=== PATIENT | male | born 1990 | race African-American/Black ===

== ENCOUNTER 2021-04-26 17:36 | Emergency (ER) | payer SELFPAY ==
[~2021-04-26] VITALS: Ht 165.1 cm; Wt 82.0 kg
[2021-04-26 20:03] VITALS: BP 152/66
[2021-04-26] MEDS ORDERED: IBUPROFEN 400MG TABLET PO ONE (21:15)
[2021-04-26] MEDS ORDERED: ACETAMINOPHEN 325MG TABLET PO ONE (21:15)
[2021-04-26] MEDS ORDERED: ONDANSETRON 4MG ODT PO ONE (21:15)
[2021-04-26] MEDS ORDERED: IBUP-2028 MT (23:26)
== END 2021-04-26 23:48 | disposition home or self-care (01) ==
LOC: ER 17:36
DX: R05.9 Cough, unspecified (principal); Z20.822 Contact with and (suspected) exposure to COVID-19
CPT/HCPCS: 87426; 93005; 99284